=== PATIENT | male | born 1945 | race Caucasian/White ===

== ENCOUNTER 2016-11-15 09:14 | Inpatient (IN) | payer MEDICARE ==
[2016-11-15] VITALS (10 sets, daily range): BP systolic 73–132; BP diastolic 41–57; PULSE 53–71; RESP 12–22; O2SAT 98–100
[~2016-11-15] VITALS: Ht 185.4 cm; Wt 128.2 kg
[2016-11-15] MEDS: Lactated Ringer's 1,000 ML IV SCH ×7 (05:00→21:12)
[~2016-11-15 09:14] MED LIST: ALBU8.5H2 INHALATION; AMLO10TA3 PO; FUR20 PO; Gentamicin Inj 120 MG in Dextrose 5% 100 ML IV ONE; INS7030 SUBQ; LIP40 PO; LISI-571 PO; METO50TA7 PO; POTA10TA12 PO; TAMS0.4C98 PO
[2016-11-15] MEDS ORDERED: Lactated Ringer's 500 ML IV PRN (10:19)
[2016-11-15] MEDS ORDERED: hydrALAZINE 20 mg/mL Inj IVPUSH PRN (10:20)
[2016-11-15] MEDS ORDERED: EPHEDrine Sulfate 50 mg/mL Inj IVPUSH PRN (10:20)
[2016-11-15] MEDS ORDERED: Labetalol 5 mg/mL 4 mL Inj IV PRN (10:20)
[2016-11-15] MEDS ORDERED: HYDROmorphone 1 mg/mL Inj IVPUSH PRN (10:20)
[2016-11-15] MEDS ORDERED: fentaNYL-PF 50 mCg/mL 2 mL Inj IVPUSH PRN ×2 (10:20→14:55)
[2016-11-15] MEDS ORDERED: Ondansetron 2 mg/mL 2 mL Inj IVPUSH PRN ×3 (10:20→14:55)
[2016-11-15] MEDS ORDERED: Phenylephrine 10,000 mCg/mL Inj IVPUSH PRN (10:20)
[2016-11-15] MEDS ORDERED: MetoCLOpramide 5 mg/mL 2 mL Inj IVPUSH PRN ×3 (10:20→14:15)
[2016-11-15] MEDS ORDERED: Dexamethasone 4 mg/mL Inj IVPUSH PRN (10:20)
--- NOTE | 2016-11-15 10:56 | PCM.HPANE ---
Patient Data Date of Service: Nov 15, 2016 Surgeon Admitting Provider: Attending Provider:Chata Coffey MD Primary Care Physician:Urvashi Monge DO Other Provider:Primitivo Adkins Anesthesia Reason for Visit Urinary Retention Ht/WT & BMI Height (Feet): 6 Height (Inches): 1.00 Weight (Kilograms): 125.0 Body Mass Index 36.00 Allergies Coded Allergies: hydrocodone (Verified Allergy, Unknown, 11/14/16) Past Anesthesia History Anesthesia History: Denies:: Abnormal Airway, Anesthesia Reactions, Difficult Intubation, Fam Anesthesia Reaction, Fam Malignant Hypertherm, Malignant Hyperthermia Diabetes History Hx Diabetes?: Yes Type of Diabetes: Type II Glycemic Control: Insulin Dependent Current Bedside Blood Glucose: 131 MRSA MRSA: No Medications Hypertension Medication: Yes Home Meds Incl Beta Armand: Yes (Metoprolol 50mg) Date Beta Armand Taken: Nov 15, 2016 Time Beta Armand Taken: 0700 Reported Medications Metoprolol Succinate ER (Toprol XL)50 Mg [id number] Mg PO BID Ref 0 11/14/16 Amlodipine 10 Mg [id number] Mg PO DAILY Ref 0 11/14/16 Tamsulosin (Flomax)0.4 Mg Capsule0.4 Mg PO DAILY Ref 0 11/14/16 Potassium Chloride ER 10 Meq [id number] Meq PO DAILY Ref 0 TAKE WITH FOOD 11/14/16 Lisinopril 5 Mg Tablet5 Mg PO DAILY #30 TABLET Ref 0 11/14/16 Insulin Human Isophan/Regular (HUMulin 70/30 U100 Insulin Vial)100 Unit/Ml Ml1 Unit SUBQ BID PRN blood glucose #1 VIAL Ref 0 11/14/16 Furosemide 20 Mg Tab20 Mg PO DAILY 30 Days Ref 0 11/14/16 Atorvastatin (Lipitor)40 Mg [id number] Mg PO DAILY Ref 0 11/14/16 Albuterol HFA (Proair HFA)8.5 Gm Hfa.aer.ad2 Puffs INHALATION Q4H PRN For Shortness of Breath #1 INHALER 11/14/16 History HEENT History: Denies:: Abnormal Airway Cataracts Difficult Intubation Dysphagia Glaucoma Hearing Problem Sinus Problem TMJ Teeth Condition: Missing Teeth Hx of Heart Problems?: Yes Cardiovascular History: Positive for:: Atrial Fibrillation (PAF) Edema (lower extremity) Heart Murmur Hypertension Valvular Heart Disease (echo 2016) Denies:: AICD Pacemaker Peripheral Vascular Hx of Respiratory Problem?: Yes Respiratory History: Positive for:: Dyspnea (can walk a couple city blocks without losing breath) Use of Inhalers / NEBS Denies:: Asthma COPD Emphysema Oxygen Administration Pneumonia Pulmonary Embolism Tuberculosis Use of C-PAP Machine Hx Neurologic Problems?: No Neurological History: Denies:: Alzheimer's Disease CVA Dementia Dizziness Headaches Multiple Sclerosis Parkinson's Disease Seizures TIA Gastrointestinal History: Denies:: Cirrhosis Diverticulitis Gall Bladder Disease Gastroesphageal Reflux Gastrointestinal Bleeding Heartburn Hepatitis Hiatal Hernia Liver Disease Rectal Bleeding Hx of Problems?: Yes Genitourinary History: Denies:: Kidney Stones Urinary Tract Infection Other Pertinent History: hematuria- current ortega catheter Male Hx: Positive for:: Prostate Problems (current admission problem) Skin History: Denies:: History Skin Disorders? Pressure Ulcers Hx Musculoskeletal Problems?: Yes Musculoskeletal History: Positive for:: Osteoarthritis Denies:: Back Injury Degenerative Joint Fibromyalgia Joint Replacement Myasthenia Gravis Systemic Lupus Hx of Psycho/Social Problems?: No Psycho Social History: Denies:: Anxiety Hx Depression Hx Surgeries?: Yes (cysto, knee scope, hernia x 2) Hx Any Other Health Problems?: Yes Other History: Denies:: Cancer Thyroid Disease History Blood Transfusions: Positive for:: Accept Blood Products? Blood Transfusions (october 2016) Denies:: Blood Transfuse Reaction Hx Diabetes: YesBedside Blood Glucose: 131 Hx Alcohol Use: NoHx Substance Use: NoHave You Smoked inLast 12 mo: No Stop/Bang S-Snoring: Do You Snore Loudly: No T-Tired: feel tired, fatigued: Yes O-Obsered: Observed not breath: Yes P-Blood Pressure: treated: Yes B- Body Mass Index > 35 kg/m2: Yes A- Age over 50: Yes N- Neck Large Circumference: No G- Gender Male: Yes JOSE ELIAS Total Score: 6 JOSE ELIAS Risk Assessment: High Risk, =/>3 Yes Risk Assessment Category Category 1A: Patient has history of documented sleep apnea, and HAS NOT received any narcotic, sedative or anesthesia administration during this stay. Category 1B: Patient has history of documented sleep apnea, and HAS received any narcotic , sedative or anesthesia administration during this stay Category 2: Patient has SUSPECTED Obstructive Sleep Apnea, and HAS received any narcotic , sedative or anesthesia administration during this stay. Category 3: Patient has SUSPECTED Obstructive Sleep Apnea and HAS NOT received narcotic, sedative or anesthesia administration during this stay. Category 4: Outpatient in Procedural Areas with known sleep apnea or who screen positive for High Risk via the STOP/BANG questionnaire. Exam Exam Vital Signs Vital Signs Date Time Temp Pulse Resp B/P Pulse Ox O2 Delivery O2 Flow Rate FiO2 11/15/16 10:10 36.1 64 16 132/52 98 Room Air Meds/Labs/Diagnostics Admission Meds Current Medications Lactated Ringer's (Lr) 1,000 ml @ 120 mls/hr Q8H20M IV Last administered on t 06:17; Start 11/15/16 at 05:00; Stop 11/15/16 at 13:19 Bedside Blood Glucose: 131 Diagnositcs Lexiscan, echo, cardiology notes all reviewed. Patient likely needing interventional cardiac cath but due to ongoing hematuria requiring transfusion needs this procedure first. Additional Information Cardiology note from 11/08/2016 reviewed. EF 40%, lexiscan positive. Unable to pursue interventional treatments due to hematuria. Mod risk surgical candidate , but bladder needs to be addressed prior to invasive cardiac procedures. Patient understands this risk. Wishes to proceed with GA over spinal. Plan Impression Patient chart reviewed, patient interviewed and anesthestic plan with risks, benefits, and alternatives discussed, and informed consent obtained. NPO Status: 11/14 at 2200 ASA Physical Status: ASA3 Severe Disease Anesthetic Plan: GA Bene/Risks/Altern/Consents: Yes HP Complete Prior to Induction: Yes Juan Jose Josue MD Nov 15, 2016 10:19
[2016-11-15 12:04] LABS: Mean Corpuscular Hemoglobin 30.4 pg (27.0-35.0); Mean Corpuscular Volume 92.9 fL (81-100)
[2016-11-15] MEDS ORDERED: 0.9% Sodium Chloride 1,000 ML IV ONE (12:55)
[2016-11-15 14:00] LABS: Mean Corpuscular Volume 92.2 fL (81-100)
[2016-11-15] MEDS ORDERED: HYDROcodone-APAP 5-325 mg Tablet PO PRN (14:15)
[2016-11-15] MEDS ORDERED: Belladonna Alk-Opium 60 mg Rectal Suppository RECTAL PRN (14:15)
[2016-11-15] MEDS ORDERED: Lactated Ringer's 1,000 ML IV SCH (14:15)
[2016-11-15] MEDS ORDERED: Polyethylene Glycol (PEG) 17 Gm Powder PO PRN ×2 (14:15→14:55)
[2016-11-15] MEDS ORDERED: Dexmedetomidine 400 mCg/100 mL 400 MCG in IV Premix 1 EACH IV SCH (14:51)
[2016-11-15] MEDS ORDERED: Propofol Inj 1,000,000 MCG in IV Premix 1 EACH IV SCH (14:51)
[2016-11-15] MEDS ORDERED: fentaNYL 2,500 mCg/250 mL 2,500 MCG in IV Premix 1 EACH IV PRN (14:51)
[2016-11-15] MEDS ORDERED: Alum-Mag Hydrox-Simeth 30 mL Suspension PO PRN (14:55)
[2016-11-15] MEDS ORDERED: Norepinephrine 8,000 mCg/250 mL D5W Premix IV SCH (14:55)
[2016-11-15] MEDS ORDERED: Senna-Docusate 8.6-50 mg Tablet PO PRN (14:55)
[2016-11-15] MEDS: Norepineph 8,000 mCg/250 mL NS 8,000 MCG in IV Premix 1 EACH IV SCH (15:05)
--- NOTE | 2016-11-15 15:10 | OP ---
[address] [address] OPERATIVE REPORT PATIENT: PAWAN DUMONT : 1945 MR#: [id number] ADMIT: 11/15/2016 JOB ID: [id number] DATE OF SURGERY: 11/15/2016 SURGEON: Chata Coffey MD PREOPERATIVE DIAGNOSIS(ES): 1. Benign prostatic hypertrophy. 2. Urinary retention. POSTOPERATIVE DIAGNOSIS(ES): PROCEDURE: Transurethral resection of prostate. ANESTHESIA: General anesthetic, Dr. Josue. DESCRIPTION OF PROCEDURE: Under general anesthetic, patient placed in lithotomy position. The genitalia prepped and draped in a sterile manner. A 26-Trinidadian Red type resectoscope was introduced in the bladder. There was significant contact bleeding from the prostatic urethra. The prostate was resected circumferentially until resection was down to capsule. There was bleeding throughout the procedure, primarily venous. The patient was typed and crossed for 2 units, which were given intraoperatively, with a stable hemoglobin. The patient tolerated the procedure well, with a couple of minor episodes of hypertension. Following completion of resection and removal of chips, a 26-Trinidadian three-way Soares catheter was inserted in the bladder and attached to continuous irrigation. ESTIMATED BLOOD LOSS: 1000 cc. DISPOSITION: The patient left the operating room with clear sorbitol irrigations.
[2016-11-15 15:23] LABS: BASOPHILS % (AUTO) 0.3 % (0-3); EOSINOPHILS % (AUTO) 1.2 % (0-5); MONOCYTES % (AUTO) 8.2 % (4-12); Mean Corpuscular Hemoglobin 30.4 pg (27.0-35.0); Mean Corpuscular Volume 91.6 fL (81-100); NEUTROPHILS % (AUTO) 73.9 % (40-74); Platelet Count 150 bil/L (150-400)
[2016-11-15 15:42] LABS: INR 1.26 ratio
[2016-11-15 15:53] LABS: TROPONIN T < 0.010 ug/L (0.0-0.011)
[2016-11-15 16:00] LABS: Magnesium 1.4 mg/dL (1.6-2.6)
--- NOTE | 2016-11-15 16:08 | PCM.ANEP1 ---
Post Anesthesia Phase 1 PACU Phase 1 Assessment Date of Service: Nov 15, 2016 Vital Signs Vital Signs Date Time Temp Pulse Resp B/P Pulse Ox O2 Delivery O2 Flow Rate FiO2 11/15/16 15:45 66 13 122/53 100 Simple Mask 10 11/15/16 15:30 67 17 128/48 100 Simple Mask 10 11/15/16 15:25 65 16 124/57 100 Simple Mask 10 11/15/16 15:20 66 15 73/44 100 Simple Mask 10 11/15/16 15:15 36.5 71 14 114/56 100 Simple Mask 10 11/15/16 10:10 36.1 64 16 132/52 98 Room Air Anesthetic Administered: GA Level of Alertness: Awake, talking WATERS's with Equal Strength: Yes Pain: Yes (back and bladder) Nausea or Vomiting: No Oxygen Delivery: Simple Mask Summary Patient with greater than average blood loss and a prolonged procedure. During the last 1 hour of the case while giving 2 units of PRBC patient became very labile with blood pressures. Discrepant blood pressures between cuff and arterial line were obtained. Patient awakened, LMA removed awake. Patient neurologically intact and appropriate. EKG obtained, possible a.fib. During case patient frequently had NRS with PVC. Arterial line replaced with continued low numbers, phenylephrine boluses given and transported to PACU awaiting ICU admission. Central line placed in PACU, very prominent IJ suggesting adequate fluid hydration (possible overload). CVP approximatley 5. Norepinephrine infusion started, hospitalist consulting. Given cardiac history, concern for perioperative cardiac event vs. hypovolemia vs. fluid overload secondary to TURP fluid. Juan Jose Josue MD Nov 15, 2016 16:08
--- NOTE | 2016-11-15 16:17 | DRSVH ---
PROCEDURE: X-RAY CHEST ONE VIEW, PORTABLE ([id number]) INDICATIONS: POST CENTRAL LINE TECHNIQUE: One view of the chest was acquired. COMPARISON: [facility], , CHEST 1 VIEW, 10/20/2016, 17:43. FINDINGS: Surgical changes and devices: Central line from right internal jugular approach extends to overlie th e expected region of the superior vena cava.. Lungs and pleura: No pleural effusions or pneumothorax. Lungs are abnormal with linear atelectasis or scarring at each lung base, left greater than right.. Mediastinum: Mediastinal contours appear normal. Heart size is normal. Bones and chest wall: No suspicious bony lesions. Overlying soft tissues appear unremarkable. IMPRESSION: No pneumothorax after central line placement. The exact positioning of the central line tip is uncertain as is always the case, but it overlies the general area of the superior vena cava. Dictated by: Toby Pemberton M.D. on 11/15/2016 at 16:14 Approved by: Toby Pemberton M.D. on 11/15/2016 at 16:15
--- NOTE | 2016-11-15 16:28 | PCM.ANEP2 ---
Post Anesthesia Evaluation ASA/CMS Post Anesthesia Date of Service: Nov 15, 2016 VS in Patient's Normal Range?: No Resp Stable; Airway Patent?: Yes CV Function & Hydration Stable: No Mental Status Recovered?: Yes Pain control Satisfactory?: Yes N/V Control Satisfactory?: Yes Additional Comments To ICU on norepinephrine. 3 units PRBC given, Hct 24% prior to 3rd unit. Patient awake. Spoke with family. Juan Jose Josue MD Nov 15, 2016 16:28
[2016-11-15] MEDS ORDERED: Chlorhexidine 0.12% 15 mL Oral Solution MT SCH (16:30)
[2016-11-15] MEDS ORDERED: EPHEDrine/NS 5 mg/mL 5 mL Syringe ONE (16:59)
[2016-11-15] MEDS ORDERED: fentaNYL-PF 50 mCg/mL 2 mL Inj ONE (16:59)
[2016-11-15] MEDS ORDERED: Phenylephrine 10,000 mCg/mL Inj ONE (16:59)
[2016-11-15] MEDS ORDERED: Propofol 10,000 mCg/mL 20 mL Inj ONE (16:59)
[2016-11-15] MEDS ORDERED: Lidocaine PF 1% 30 mL Inj ONE (16:59)
[2016-11-15] MEDS ORDERED: Phenylephrine/NS-PF 100 mCg/mL 5 mL Syringe IVPUSH ONE (16:59)
--- NOTE | 2016-11-15 18:06 | PCM.HPMED ---
Subjective Date of Service Nov 15, 2016 Primary Provider: Admitting Physician: Primary Care Physician: Urvashi Monge DO Attending Physician: Chata Coffey MD Admit Status: Direct Admit, Admit to Yellow Team Chief Complaint: 71-year-old man with BPH, type II diabetes mellitus, CHF, hypertension, atrial fibrillation presents with acute blood loss hemodynamic shock following TURP surgery today History of Present Illness: Patient states that he was in usual state of health presenting for elective TURP surgery today. He has no history of bleeding diathesis. During surgery today, He experienced significant blood loss, estimated at approximately 1000 mL. Anesthesiologist reported labile blood pressures with significant hypotension systolic blood pressure in the 40s by art line, although variable readings up to 120 obtained from arm cuffs. He is transferred to direct admission to the CCU for the management of hemodynamic shock. When interviewed approximately 4 hours after surgery, the patient's only complaint is bladder discomfort. Currently has three-way Soares and bladder irrigation. He denies chest pain, dyspnea, nausea vomiting, abdominal pain, headache, or problems with his extremities. Review of Systems: Patient is unable to comply with review of systems at this time. Allergies Coded Allergies: hydrocodone (Verified Allergy, Unknown, 11/14/16) Home Medications Per med reconciliation performed on 11/14: Amlodipine 10 mg daily Atorvastatin 40 mg daily Furosemide 20 mg daily Insulin 70/30, 45 units every morning, 30 units every dinner Lisinopril 5 mg daily Metoprolol succinate 50 mg twice a day Potassium chloride 20 mEq per day Tamsulosin 0.4 mg. PMH # CHF - admitted to [facility] on 10/20/16 due to shortness of breath. Ischemic cardiomyopathy. Echocardiogram with LVEF 40-45%, mild LV dilation, mild global hypokinesis. No evidence of pulmonary hypertension. Moderate MR and TR. # Coronary artery disease. Nuclear cardiac perfusion on 10/31/16. LVEF 55% by nuclear method. Fixed perfusion deficit on basal inferior wall and apex, with moderate reversible defect on distal inferior wall. # Chronic atrial fibrillation - no anticoagulation due to hematuria # Postobstructive nephropathy - peak creatinine 4.5 in 10/20/16 at [facility] # BPH - nocturia every 2 hours # Blood loss anemia - hemoglobin range 8-9 during hematuria requiring bladder clot evaluation with cystoscopy by Dr. Coffey. # Hypertension # Type II diabetes mellitus recent A1c and complications unknown # Degenerative joint disease - moderate to severe symptoms knees bilaterally . Family History Father in 90s generally few medical problems. Mother from lung disease. No brothers and sisters. No significant family trends. Specifically no bleeding diatheses or thrombophilia. Social History Hx Alcohol Use: No Hx Substance Use: No Living Arrangement: with Family (lives with in his own home. Ordinarily active including moving with stacks. 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 Patient family expressed a preference for full code but with termination of efforts in the setting of severe neurologic injury or persistent organ system failure. Exam Vital Signs Vital Sign - Last Date Time Temp Pulse Resp B/P Pulse Ox O2 Delivery O2 Flow Rate FiO2 11/15/16 10:10 36.1 64 16 132/52 98 Room Air Exam Constitutional: appears pale; in no distress; vital signs noted Eyes: sclerae anicteric, mild conjunctival pallor ENMT: ears, nose atraumatic; oral mucosa dry Neck: supple, JVD not detected Chest: symmetric, no pain or lesions, CVC in place Resp: auscultation clear, no wheezes, rales or dullness Cardiac: S1, S2, irregular beats, no audible murmur Abdomen: bowel sounds present, nontender, no organomegaly : Soares in place Musculoskeletal: no joints with acute erythema, swelling Skin and soft tissues: no rash; no pitting edema Peripheral pulses: normal at wrist, feet; arterial line in place Lymphatic: no adenopathy cervical Neurological: Cranial Nerves - face symmetric Reflexes - symmetrically reduced Motor - 5/5 strength, normal tone Sensory- intact light touch in feet Coordination - normal movement, no tremor Psych & Mental Status - oriented, seems to understand current condition Lab and Diagnostics Result Diagram: 11/15/16 1356 X-Rays, CTs and MRIs PROCEDURE: X-RAY CHEST ONE VIEW, PORTABLE ([id number]) INDICATIONS: POST CENTRAL LINE IMPRESSION: No pneumothorax after central line placement. The exact positioning of the central line tip is uncertain as is always the case, but it overlies the general area of the superior vena cava. Dictated by: Toby Pemberton M.D. on 11/15/2016 at 16:14 . 12-lead ECG 11/15 at 14-31 hour Sinus mechanism with probable multifocal atrial pacing. Approximately [address]-T wave changes. Assessment & Plan 71-year-old man presents with acute blood loss anemia and hemodynamic shock following prostate surgery # Hematological - Hemodynamic shock secondary to acute blood loss anemia. Received 4 units PRBC perioperatively. - Check coagulation parameters, supplement FFP or cryo if greater than 4 units PRBC needed and elevated PTT - Daily CBC and coags # Cardiac: Hemodynamics & Rhythm - recent cardiac evaluation most consistent with chronic diastolic CHF. No evidence of acute exacerbation at this time. Patient is at moderately high risk of ischemic events. - Telemetry monitoring - CVP monitoring maintain 8-12 cm H2O with aggressive IV hydration (lactated Ringer's) - norepinephrine as needed - Maintain MAP greater than 65 mmHg; monitor Soares output - Trend troponin 3 # Lines, I/O's, fluids and electrolytes - - Lactated Ringer's at 250 mL per mL; boluses as needed to maintain MAP greater than 65 mmHg - Reduce lactated Ringer's to 100 mL per hour when CVP 12 cm H20 - CVC care - Arterial line care # Renal - high risk of ATN due to today's hypotensive episode - Daily BMP - Goal urine output greater than 0.5 mL/KG/MR - Careful daily I's and O's, while receiving bladder irrigation. - Monitor central venous pressure, reduce IV fluids if in oliguric renal failure # GI, diabetes, and nutritional status - type II diabetes mellitus usually insulin using. - Nothing by mouth since 11/15 AM; 14 units of insulin 70/30 in a.m. on 11/15 - resume diabetic diet when hemodynamically stable - Subcutaneous regular insulin correctional regimen at present - Resume basal and bolus insulin when hemodynamically stable. # Pain status - opioid sedatives parenteral as needed - Bladder spasm medications per Dr. Coffey # GI prophylaxis: Pantoprazole IV Chronic, stable, or resolving problems # Respiratory function - -O2 supplement as needed - Wean as tolerated # Neurological - no evidence of compromise at this time - Monitor status clinically # Infectious disease status - no signs of infection at this time # Venous thromboembolism prophylaxis: None at this time due to acute bleeding # Goals of care, expected hospital duration 2-5 days, discharge planning: Pending - Admitted to inpatient status with expectation of care greater than 48 hours - Patient is full code Pain Evaluation: Pain not Controlled VTE Prophylaxis: SCDs Resuscitation Status: CPR: Attempt Resuscitation Time spent 75 minutes critical care time Juan Jose Poe MD Nov 15, 2016 15:16
[2016-11-15] MEDS ORDERED: Sodium Chloride LOK Flush 10 mL Syringe IVFLUSH PRN ×2 (18:10)
[2016-11-15] MEDS: Insulin Human REGular 300 Unit/3 mL Inj SUBQ SCH (21:13)
[2016-11-15] MEDS ORDERED: Albuterol 2.5 mg/3 mL Inhalation Solution NEB PRN (21:30)
[2016-11-15] MEDS ORDERED: Insulin Human NPH-Reg 70-30 100 Unit/mL 3 mL Pen SUBQ PRN (21:35)
[2016-11-16] VITALS (9 sets, daily range): BP systolic 99–158; BP diastolic 42–62; PULSE 60–85; RESP 17–27; O2SAT 96–98
[2016-11-16] MEDS: Lactated Ringer's 1,000 ML IV SCH ×7 (01:26→16:39)
[2016-11-16] MEDS: Norepineph 8,000 mCg/250 mL NS 8,000 MCG in IV Premix 1 EACH IV SCH (01:26)
[2016-11-16] MEDS: Insulin Human REGular 300 Unit/3 mL Inj SUBQ SCH (02:21)
[2016-11-16 04:39] LABS: Mean Corpuscular Hemoglobin 30.4 pg (27.0-35.0); Mean Corpuscular Volume 88.9 fL (81-100)
[2016-11-16 05:08] LABS: TROPONIN T 0.01 ug/L (0.0-0.011)
--- NOTE | 2016-11-16 07:25 | NUR ---
Irrigation Continuous irrigation throughout night to keep urine pinkish. Had several large clots through ortega but did not need to manually irrigate. Pt had no pain/cramping throughout night in area. Some leaking around ortega once while pt was trying to have BM on bedpan. Pt tolerated night well. BP stable. Care ongoing
[2016-11-16] MEDS: MeTOProlol XL 50 mg ER24 Tablet PO SCH ×2 (08:00→19:33)
[2016-11-16] MEDS ORDERED: Glucose 40% Oral Gel 15 Gm Tube PO PRN (08:05)
--- NOTE | 2016-11-16 08:06 | PCM.ANEP2 ---
Post Anesthesia Evaluation ASA/CMS Post Anesthesia Date of Service: Nov 16, 2016 VS in Patient's Normal Range?: No Resp Stable; Airway Patent?: Yes CV Function & Hydration Stable: No Mental Status Recovered?: Yes Pain control Satisfactory?: Yes N/V Control Satisfactory?: Yes Additional Comments Patient POD #1 s/p TURP. Continues to be hypotensive requiring pressor support , transfused 3 units PRBC yulissa/post-operative yesterday. Juan Jose Josue MD Nov 16, 2016 08:06
[2016-11-16 08:28] LABS: Magnesium 1.8 mg/dL (1.6-2.6)
[2016-11-16] MEDS ORDERED: Furosemide 10 mg/mL 4 mL Inj IVPUSH SCH (08:30)
[2016-11-16] MEDS ORDERED: Pantoprazole 4 mg/mL 10 mL Inj IVPUSH SCH (08:30)
[2016-11-16] MEDS: Potassium Chloride 20 mEq SR Tablet PO SCH (09:06)
[2016-11-16] MEDS: levoFLOXacin 500 mg Tablet PO SCH (09:06)
[2016-11-16] MEDS: Insulin GLARgine 100 Unit/mL Syringe SUBQ SCH (09:07)
[2016-11-16] MEDS: Insulin LISPRO 300 Unit/3 mL Inj SUBQ SCH ×5 (09:08→21:15)
--- NOTE | 2016-11-16 11:52 | NUR ---
Social Work: Initial Assessment D: Per EMR review, pt is a 71 year old male admitted for urinary retention. Pt is [facility] Medicare with no LTC insurance or VA Benefits. PCP is Urvashi Monge DO. NOK Is Pebbles Patel, , . Advanced directives not completed-information provided by [facility]. Readmit score is moderate, 4/8. [facility] met with pt and family at bedside. Sw role and contact information provided. See initial assessment. Pt lives in [place] with his spouse. He is I with ADLs at baseline. Pt states he recently spend 10 days at [facility] and was discharged home with no needs. Pt lives in a home with ramp access and no internal stairs. Pt uses a cane at base and continues to drive. Pt has never had HH or skilled rehab. Pt states his will transport once medically stable. A: pt who was previously I. P: Evolving; [facility] to continue to follow pt's clinica progress and to r/o discharge needs including HH or SNF. KAYLEIGH Vazquez Addendum: 11/16/16 at 1156 by SHANNAN RAPHAEL Amended: Links added.
[2016-11-16] MEDS ORDERED: 0.9% Sodium Chloride 250 ML IV PRN (15:35)
--- NOTE | 2016-11-16 16:51 | NUR ---
P: Hypotension I: Tried to wean norepinephrine down, but BP drops. Dr. Poe notified and 500cc LR bolus given and rate increased to 125cc/hr. H&H low and one unit PRBC's infusing as ordered. Norepinephrine gtt 0.04 mcqs/kg/min with BP more stable. Urine pale pink with CBI infusing very slowly. Taking diet and fluids well. Blood sugars high and Lantus started. RIJ TLC patent without difficulty. Turns self with some pillow placement assistance needed. Denies needing pain medication. c/o some low back pain and repositioning helps. Pt napping and now sats are down with sleep so O2 4L/NC. NSR. Family at bedside and updated on plan of care and pt's condition. E: Improving S: Pt alert and oriented. Uses call light appropriately. Frequent rounding.
--- NOTE | 2016-11-16 19:24 | PCM.PNMED ---
Subjective Date of Service Nov 16, 2016 Subjective 71-year-old man with history of chronic systolic CHF, hypertension, type II diabetes mellitus, coronary artery disease and atrial fibrillation presents with acute blood loss anemia in hemorrhagic shock following elective TURP on Patient feels much improved today. Bladder spasms and perineal pain are improved. Appetite is good. Experience slight presyncopal sensation later in the afternoon. Continues require pressors to maintain good blood pressure. Exam Vital Signs Vital Sign - Last Date Time Temp Pulse Resp B/P Pulse Ox O2 Delivery O2 Flow Rate FiO2 11/16/16 16:30 37.0 83 24 117/54 96 Nasal Cannula 4.00 Intake and Output 11/15/16 11/15/16 11/16/16 Cumulative From/Thru 15:00 23:00 07:00 11/14/16 10:30 - 11/16/16 06:42 Intake Total 3105 ml 250 ml 3512 ml 6867 ml Output Total 1000 ml 100 ml 800 ml 1900 ml Balance 2105 ml 150 ml 2712 ml 4967 ml IV Total 2105 ml 250 ml 3512 ml 5867 ml Autotransfusion 1000 ml 1000 ml Output Urine Total 100 ml 800 ml 900 ml Estimated Blood Loss 1000 ml 1000 ml # Bowel Movements 1 1 Exam General: Elderly man slightly pale but no acute distress HEENT: sclerae anicteric, oral mucosa moist Neck: no JVD Chest: clear to auscultation Cardiac: S1S2, irregular, no murmur Abdomen: BS normal, non-tender Extremities: 1+ edema of hands no pedal edema Neuro: A&O, cranial nerves symmetric, motor strength 5/5, coordination normal IVs and Medications Medications Reviewed: Medications were reviewed in detail Lab and Diagnostics Result Diagram: 11/16/16 1400 11/16/16 0425 X-Rays, CTs and MRIs PROCEDURE: X-RAY CHEST ONE VIEW, PORTABLE ([id number]) INDICATIONS: POST CENTRAL LINE IMPRESSION: No pneumothorax after central line placement. The exact positioning of the central line tip is uncertain as is always the case, but it overlies the general area of the superior vena cava. Dictated by: Toby Pemberton M.D. on 11/15/2016 at 16:14 . 12-lead ECG 11/15 at 14-31 hour Sinus mechanism with probable multifocal atrial pacing. Approximately [address]-T wave changes. Assessment & Plan 71-year-old man presents with acute blood loss anemia and hemodynamic shock following prostate surgery # Hematological - Hemodynamic shock secondary to acute blood loss anemia. Received 4 units PRBC perioperatively. Baseline hemoglobin was 9.5, has declined to 7.4 as of 11/16. Bladder flush has few clots but minimal bleeding. Suspect hemodilution. - Transfuse 1 unit PRBC - Daily CBC, warfarin only if hemoglobin less than 8.0 # Cardiac: Hemodynamics & Rhythm - recent cardiac evaluation most consistent with chronic diastolic CHF. No evidence of acute exacerbation at this time. Patient is at moderately high risk of ischemic events. Hypertension is persistent even after volume resuscitation. No troponin elevation. Continues to require norepinephrine at 24 hours post hemorrhagic event. - Telemetry monitoring - CVP target 8-12 cm H2O with IV hydration (lactated Ringer's) - norepinephrine as needed - Maintain MAP greater than 65 mmHg; maintain CVP; monitor Soares output # Lines, I/O's, fluids and electrolytes - Lactated Ringer's at 250 mL per mL initially, reduced to maintenance.; - Fluid boluses as needed to maintain MAP greater than 65 mmHg - Reduce lactated Ringer's to 100 mL per hour when CVP 12 cm H20 - CVC care - Arterial line care; hope to discontinue on 11/17 # Renal - high risk of ATN due to today's hypotensive episode. Serum creatinine 1.29, up to 1.5 at 24 hours after surgery. - Daily BMP - Lasix today, even in setting of fluid resuscitation to maintain urinary flow - Goal urine output greater than 0.5 mL/KG/MR - Careful daily I's and O's, while receiving bladder irrigation. - Monitor central venous pressure, reduce IV fluids if in oliguric renal failure # GI, diabetes, and nutritional status - type II diabetes mellitus usually insulin using. - 4 times a day capillary blood glucose - Glucose control goals: Random less than 180, fasting less than 140, none less than 70 - Insulin as needed, divided 50-50 long-acting and nutritional/correctional # Pain status - Bladder spasm medications per Dr. Coffey # GI prophylaxis: Pantoprazole IV Chronic, stable, or resolving problems # Respiratory function - -O2 supplement as needed - Wean as tolerated # Neurological - no evidence of compromise at this time - Monitor status clinically # Infectious disease status - no signs of infection at this time # Venous thromboembolism prophylaxis: No chemoprophylaxis at this time due to acute bleeding # Goals of care, expected hospital duration 2-3 days, discharge planning: Pending - Admitted to inpatient status with expectation of care greater than 48 hours - Patient is full code Pain Evaluation: Adequate Pain Control GI Prophylaxis: Not indicated VTE Prophylaxis: SCDs VTE Mechanical Devices: Intermittant Pneumatic CD Resuscitation Status: CPR: Attempt Resuscitation Time spent 40 minutes Juna Jose Poe MD Nov 16, 2016 19:24
[2016-11-17] VITALS (11 sets, daily range): BP systolic 110–142; BP diastolic 46–57; PULSE 70–81; RESP 14–23; O2SAT 93–99
[2016-11-17] MEDS: Lactated Ringer's 1,000 ML IV SCH ×3 (00:45→17:07)
--- NOTE | 2016-11-17 03:24 | NUR ---
P) Cardiac/Sleep apnea/fever Pt. with low grade fever tonight, T-max 37.5c axillary so far this shift, has severe sleep apnea, SPO2 has dropped as low as 65% momentarily then comes right back up to the low 90's, pt. states he has never been tested for sleep apnea. Cardiac rhythm sinus with a first degree AVB and MF PVC's, weaned of norepinephrine at 2200,so far MAP's >60. I) Cont. to monitor closely, changed to oxymask as he is also mouth breathing when he is asleep. E) Currently resting quietly but also talks and moans in his sleep, denies pain when he is awake.
[2016-11-17 04:13] LABS: Mean Corpuscular Hemoglobin 29.9 pg (27.0-35.0); Mean Corpuscular Volume 91.3 fL (81-100)
--- NOTE | 2016-11-17 04:28 | NUR ---
P) Urine Pt.'s urine light pink to matthias with occasional small clots, copious output. Irrigation on standby but ready if needed. I) Cont. to monitor. E) Resting quietly with eyes closed.
[2016-11-17] MEDS: Pantoprazole 40 mg ER24 Tablet PO SCH (06:24)
--- NOTE | 2016-11-17 07:53 | PROG NOTE ---
[address] [address] PROGRESS NOTE PATIENT: PAWAN DUMONT : 1945 MR#: [id number] ADMIT: 11/15/2016 JOB ID: [id number] DATE: SUBJECTIVE: Postoperative day two, complicated TURP. Continuous bladder irrigations have been turned off. Urine is clear. Creatinine has dropped slightly from 1.5 to 1.39. Remainder of his chemistry is within normal limits. Hematocrit is stable at 22. Blood pressure is 116/46, off pressors. When stable, transfer to first floor. PLAN: Discharge home with Soares catheter. To see in follow up next week for trial of voiding.
[2016-11-17] MEDS: MeTOProlol XL 50 mg ER24 Tablet PO SCH ×2 (08:17→19:37)
[2016-11-17] MEDS ORDERED: 0.9% Sodium Chloride 250 ML IV PRN (08:20)
[2016-11-17] MEDS: levoFLOXacin 500 mg Tablet PO SCH (08:22)
[2016-11-17] MEDS: Potassium Chloride 20 mEq SR Tablet PO SCH (08:22)
[2016-11-17] MEDS: Insulin GLARgine 100 Unit/mL Syringe SUBQ SCH (08:27)
[2016-11-17] MEDS: Insulin LISPRO 300 Unit/3 mL Inj SUBQ SCH ×4 (08:28→21:06)
[2016-11-17] MEDS: Norepineph 8,000 mCg/250 mL NS 8,000 MCG in IV Premix 1 EACH IV SCH (08:36)
--- NOTE | 2016-11-17 12:32 | NUR ---
took over patient care 1230pm
--- NOTE | 2016-11-17 14:30 | PATH ---
SURGICAL PATHOLOGY Attending Physician:Chata Coffey MD () CASE STATUS: Signed Out PATIENT NAME: PAWAN DUMONT PID: [id number] : 1945 DATE COLLECTED:11/15/2016 22:31 SPECIMEN: Prostate, Chips CLINICAL HISTORY: URINARY RETENTION 1). RESECTED PROSTATE FINAL DIAGNOSIS: 1.PROSTATE TISSUE (TRANSURETHRAL RESECTION, 96.8 GRAMS): NODULAR HYPERPLASIA OF GLANDS AND STROMA, NEGATIVE FOR ATYPIA. ICD10 CODE N40.1 GROSS DESCRIPTION: The specimen is received in formalin, labeled with the patient's name, sublabeled as resected prostate, and consists of multiple fragments of [place]-pink rubbery prostatic tissue (96.8 g, 9.5 x 8.5 x 4.5 cm in aggregate). Section code: (A-M) prostatic tissue, loan representative. 11/16/16 JM MICRO DESCRIPTION: See diagnosis. ICD-9 CODES: CPT CODES: 1: 59079 Electronically Signed Out Fabrizio Reinoso MD [facility] [address], [place] [address] Technical component performed at [facility], [address] [place] [address] Ave[address], [place], [address]
--- NOTE | 2016-11-17 15:05 | PCM.PNMED ---
Subjective Date of Service Nov 17, 2016 Subjective 71-year-old man with history of chronic systolic CHF, hypertension, type II diabetes mellitus, coronary artery disease and atrial fibrillation presents with acute blood loss anemia in hemorrhagic shock following elective TURP on Patient feels much improved today. Bladder spasms and perineal pain are improved. Appetite is good. Exam Vital Signs Vital Sign - Last Date Time Temp Pulse Resp B/P Pulse Ox O2 Delivery O2 Flow Rate FiO2 11/17/16 13:06 70 11/17/16 12:30 37.0 23 135/46 93 Room Air 11/17/16 08:30 2.00 Intake and Output 11/16/16 11/16/16 11/17/16 Cumulative From/Thru 15:00 23:00 07:00 11/14/16 10:30 - 11/17/16 06:03 Intake Total 3657 ml 1816 ml 38877 ml Output Total 1800 ml 3500 ml 7200 ml Balance 1857 ml -1684 ml 5140 ml Intake Oral 1440 ml 300 ml 1740 ml IV Total 1817 ml 1516 ml 9200 ml Autotransfusion 1000 ml Packed Cells 400 ml 400 ml Output Urine Total 1800 ml 3500 ml 6200 ml Estimated Blood Loss 1000 ml # Bowel Movements 1 Exam General: Elderly man slightly pale but good spirits HEENT: sclerae anicteric, oral mucosa moist Neck: no JVD Chest: Right IJ CVC, lungs clear to auscultation Cardiac: S1S2, irregular, no murmur Abdomen: BS normal, non-tender Extremities: 2+ edema of hands no pedal edema Neuro: A&O, cranial nerves symmetric, motor strength 5/5, coordination normal IVs and Medications Medications Reviewed: Medications were reviewed in detail Lab and Diagnostics Result Diagram: 11/17/1640411/17/16404 X-Rays, CTs and MRIs PROCEDURE: X-RAY CHEST ONE VIEW, PORTABLE ([id number]) INDICATIONS: POST CENTRAL LINE IMPRESSION: No pneumothorax after central line placement. The exact positioning of the central line tip is uncertain as is always the case, but it overlies the general area of the superior vena cava. Dictated by: Toby Pemberton M.D. on 11/15/2016 at 16:14 . 12-lead ECG 11/15 at 14-31 hour Sinus mechanism with probable multifocal atrial pacing. Approximately [address]-T wave changes. Additional Diagnostics SURGICAL PATHOLOGY DATE COLLECTED:11/15/2016 22:31 SPECIMEN: Prostate, Chips CLINICAL HISTORY: URINARY RETENTION 1). RESECTED PROSTATE FINAL DIAGNOSIS: 1.PROSTATE TISSUE (TRANSURETHRAL RESECTION, 96.8 GRAMS): NODULAR HYPERPLASIA OF GLANDS AND STROMA, NEGATIVE FOR ATYPIA. . Assessment & Plan 71-year-old man presents with acute blood loss anemia and hemodynamic shock following prostate surgery # Hematological - Hemodynamic shock secondary to acute blood loss anemia. Received 4 units PRBC perioperatively, 1 unit PRBC on 11/16. Baseline hemoglobin was 9.5, has declined to 7.2 as of 11/17. Bladder flush has few clots but minimal bleeding. Suspect hemodilution. - Transfuse 1 unit PRBC - Daily CBC # Cardiac: Hemodynamics & Rhythm - recent cardiac evaluation most consistent with chronic diastolic CHF. No evidence of acute exacerbation at this time. Patient is at moderately high risk of ischemic events. Hypertension is persistent even after volume resuscitation. No troponin elevation. Continued to require norepinephrine at 36 hours post hemorrhagic event, but now weaned off with stable blood pressure. He received Lasix 1 time with good diuresis. Body weight is 6 kg above baseline. Heart line discontinued. - Discontinue Telemetry monitoring # Lines, I/O's, fluids and electrolytes - Lactated Ringer's at 250 mL per hr initially, reduced to 100 mm/h maintenance. - Discontinue IV fluids; encourage by mouth intake - We will consider need for additional Lasix in a.m. - CVC care # Renal - concern for potential ATN due to hypotensive episode. Serum creatinine 1.29, up to 1.5 then declined to 1.39. He now seems at low risk for ATN - Encourage by mouth hydration # GI, diabetes, and nutritional status - type II diabetes mellitus usually insulin using insulin 70/30 approximately 75 units per day. Blood glucose is slightly above goal on approximately 60 units insulin per day - 4 times a day capillary blood glucose - Glucose control goals: Random less than 180, fasting less than 140, none less than 70 - Insulin as needed, divided 50-50 long-acting and nutritional/correctional - Increase insulin dosing today # Status post TURP on 11/15/15. Flushing of 3-way Soares catheter is been discontinued. Urine remains slightly pink but no significant clots or blood loss. - Management per urology career development consultant; will leave Soares in place until Sunday # Pain status. Pain is now well controlled # Venous thromboembolism prophylaxis: Okay to initiate chemoprophylaxis Chronic, stable, or resolving problems # Respiratory function - stable despite positive fluid balance -Monitor for signs of CHF; consider Lasix as needed # Neurological - no evidence of compromise at this time # Infectious disease status - no signs of infection at this time # GI prophylaxis: Pantoprazole IV discontinued # Goals of care, expected hospital duration 1-2 days, discharge planning: Pending mobilization out of bed, and stability of hematocrit - Admitted to inpatient status with expectation of care greater than 48 hours - Patient is full code Pain Evaluation: Adequate Pain Control GI Prophylaxis: Not indicated VTE Prophylaxis: SCDs VTE Mechanical Devices: Intermittant Pneumatic CD Resuscitation Status: CPR: Attempt Resuscitation Time spent 35 minutes spent in patient assessment, counseling patient and family, and review of data with consultants Juan Jose Poe MD Nov 17, 2016 15:05
--- NOTE | 2016-11-17 16:48 | NUR ---
P: Alteration in I: Pt VSS. Soares patent and draining pink urine with very little clots. CBI dc'd. Status changed to PCC without tele. Pt up to BSC with stand by assist and had two large formed stools. Room air with sats stable. RIJ TLC patent and flushes well. NSR. Taking diet and fluids well. Family at bedside and pt and family are updated on pt's condition and plan of care. E: Stable S: Alert and Oriented. Uses call light appropriately. Frequent rounding.
[2016-11-18 00:11] VITALS: BP 158/60; PULSE 70; RESP 22; O2SAT 100
[2016-11-18] MEDS: Lactated Ringer's 1,000 ML IV SCH ×4 (00:58→21:46)
[2016-11-18 03:26] LABS: Mean Corpuscular Hemoglobin 30.4 pg (27.0-35.0); Mean Corpuscular Volume 87.8 fL (81-100)
--- NOTE | 2016-11-18 05:58 | NUR ---
Sleep Patient requested to sleep as much as possible tonight. Patients room darkened and nursing cares cluster.
[2016-11-18 06:04] VITALS: BP 139/68; PULSE 62; RESP 20; O2SAT 95
[2016-11-18] MEDS: Pantoprazole 40 mg ER24 Tablet PO SCH (06:09)
[2016-11-18] MEDS: Norepineph 8,000 mCg/250 mL NS 8,000 MCG in IV Premix 1 EACH IV SCH (07:08)
[2016-11-18 07:29] VITALS: BP 148/74; PULSE 62; RESP 16; O2SAT 92
[2016-11-18] MEDS: levoFLOXacin 500 mg Tablet PO SCH (07:45)
[2016-11-18] MEDS: MeTOProlol XL 50 mg ER24 Tablet PO SCH ×2 (07:45→21:22)
[2016-11-18] MEDS: Insulin LISPRO 300 Unit/3 mL Inj SUBQ SCH ×4 (07:48→21:33)
[2016-11-18] MEDS: Insulin GLARgine 100 Unit/mL Syringe SUBQ SCH (07:50)
[2016-11-18] MEDS: Potassium Chloride 20 mEq SR Tablet PO SCH (07:54)
[2016-11-18] MEDS ORDERED: Insulin GLARgine 100 Unit/mL Syringe SUBQ SCH (08:30)
--- NOTE | 2016-11-18 11:22 | PCM.PNSURG ---
Subjective Date of Service: Nov 18, 2016 Date of Service: Nov 18, 2016 Visit Information: Reason for Visit Urinary Retention Surgery/Surgery Date Post-Op Day # 3 Date of Admission: Nov 15, 2016 at 16:58 Hospital Day # 4 Subjective: Mr Patel was on the commode this morning. He states he has no pain from the catheter or pain. Postop General: No Complaints Gastrointestinal: Tolerating Oral Feedings Objective Vital Sign- Last 8 Hours Date Time Temp Pulse Resp B/P Pulse Ox O2 Delivery O2 Flow Rate FiO2 11/18/16 07:29 36.7 62 16 148/74 92 Room Air 11/18/16 06:04 36.8 62 20 139/68 95 Room Air Intake and Output- Last 8 Hour 11/18/16 Cumulative From/Thru 06:59 11/14/16 10:30 - 11/18/16 06:04 Intake Total 1614 ml 91105 ml Output Total 2600 ml 86759 ml Balance -986 ml 3109 ml Intake Oral 1614 ml 4634 ml IV Total 9275 ml Autotransfusion 1000 ml Packed Cells 700 ml Output Urine Total 2600 ml 96954 ml Estimated Blood Loss 1000 ml # Bowel Movements 3 General: Alert Catheters: 3 Way Irrigation (CBI has been d/c'd. His urine is clear in tubing.) Result Diagram: 11/18/16 0310 11/18/16 0310 Assessment & Plan Impression POD# 3, TURP Problems: Plan Continue as with the plan outlined by Dr Coffey - Pt will go home with ortega catheter to dependent drainage and f/u as outpt for voiding trial Very much appreciate medicine team's care of Mr Patel VTE Prophylaxis: SCDs Resuscitation Status: CPR: Attempt Resuscitation Tran Hudson MD Nov 18, 2016 11:22
--- NOTE | 2016-11-18 11:30 | NUR ---
Evaluation completed. Please go to "Notes" then click on "Assessments and Notes" (bottom left corner of screen). Then select appropriate discipline tab on top of screen.
--- NOTE | 2016-11-18 15:30 | NUR ---
AMBULATION/HARRISON P-Patient needs to get out of bed and ambulate. Patient has recent Hx of TURP and bleed. I- PT ambulated patient and has signed off, Nurse ambulated patient x2 = 150ft. Harrison catheter assessed for patency. E- Harrison draining pink urine 1000ml so far this shift. Patient tolerated ambulation well denies shortness of breath. LABS -Hgb 8.2, HcT 23.7 NEURO-LOC X4 CVS- No telemetry PLUM-RA, Night 2L + ox GI- BG 275 and 367 today - Harrison pink SKIN- Bottom red blanchable PAIN- Denies IV- IJ X3 PLAN- D/C home tomorrow.
[2016-11-18 16:13] VITALS: BP 136/64; PULSE 58; RESP 20; O2SAT 94
--- NOTE | 2016-11-18 18:24 | PCM.PNMED ---
Subjective Date of Service Nov 18, 2016 Subjective 71-year-old man with history of chronic systolic CHF, hypertension, type II diabetes mellitus, coronary artery disease and atrial fibrillation presents with acute blood loss anemia in hemorrhagic shock following elective TURP on Patient feels much improved today. Feels weak and concerned about ambulating on his arthritic knees. Appetite is good. Exam Vital Signs Vital Sign - Last Date Time Temp Pulse Resp B/P Pulse Ox O2 Delivery O2 Flow Rate FiO2 11/18/16 16:13 36.8 58 20 136/64 94 Room Air 11/18/16 00:11 4.00 Intake and Output 11/17/16 11/17/16 11/18/16 Cumulative From/Thru 14:59 22:59 06:59 11/14/16 10:30 - 11/18/16 06:04 Intake Total 375 ml 1280 ml 1614 ml 45360 ml Output Total 2700 ml 2600 ml 97497 ml Balance 375 ml -1420 ml -986 ml 3109 ml Intake Oral 1280 ml 1614 ml 4634 ml IV Total 75 ml 9275 ml Autotransfusion 1000 ml Packed Cells 300 ml 700 ml Output Urine Total 2700 ml 2600 ml 85992 ml Estimated Blood Loss 1000 ml # Bowel Movements 2 3 Exam General: Elderly man in good spirits HEENT: sclerae anicteric, oral mucosa moist Neck: no JVD Chest: Right IJ CVC, lungs clear to auscultation Cardiac: S1S2, irregular, no murmur Abdomen: BS normal, non-tender Extremities: 2+ edema of hands no pedal edema Neuro: A&O, cranial nerves symmetric, motor strength 5-/5, coordination normal IVs and Medications Medications Reviewed: Medications were reviewed in detail Lab and Diagnostics Result Diagram: 11/18/1630911/18/16309 X-Rays, CTs and MRIs PROCEDURE: X-RAY CHEST ONE VIEW, PORTABLE ([id number]) INDICATIONS: POST CENTRAL LINE IMPRESSION: No pneumothorax after central line placement. The exact positioning of the central line tip is uncertain as is always the case, but it overlies the general area of the superior vena cava. Dictated by: Toby Pemberton M.D. on 11/15/2016 at 16:14 . 12-lead ECG 11/15 at 14-31 hour Sinus mechanism with probable multifocal atrial pacing. Approximately [address]-T wave changes. Additional Diagnostics SURGICAL PATHOLOGY DATE COLLECTED:11/15/2016 22:31 SPECIMEN: Prostate, Chips CLINICAL HISTORY: URINARY RETENTION 1). RESECTED PROSTATE FINAL DIAGNOSIS: 1.PROSTATE TISSUE (TRANSURETHRAL RESECTION, 96.8 GRAMS): NODULAR HYPERPLASIA OF GLANDS AND STROMA, NEGATIVE FOR ATYPIA. . Assessment & Plan 71-year-old man presents with acute blood loss anemia and hemodynamic shock following prostate surgery # Hematological - Hemodynamic shock secondary to acute blood loss anemia. Received 4 units PRBC perioperatively, 1 unit PRBC on 11/16. Baseline hemoglobin was 9.5, has declined to 8.2 as of 11/18. Urine is clearing Suspect hemodilution. - Repeat CBC in a.m. - Iron supplement - Discontinue CVC # Cardiac: Hemodynamics & Rhythm - recent cardiac evaluation most consistent with chronic diastolic CHF. No evidence of acute exacerbation at this time. Patient is at moderately high risk of ischemic events. Hypertension is persistent even after volume resuscitation. No troponin elevation. Continued to require norepinephrine at 36 hours post hemorrhagic event, but now weaned off with stable blood pressure. He received Lasix 1 time with good diuresis. Body weight is 6 kg above baseline. Heart line discontinued. - Discontinue Telemetry monitoring # Lines, I/O's, fluids and electrolytes - Lactated Ringer's at 250 mL per hr initially, reduced to 100 mm/h maintenance. - Discontinue IV fluids; encourage by mouth intake - We will consider need for additional Lasix in a.m. - CVC care # Renal - concern for potential ATN due to hypotensive episode. Serum creatinine 1.29, up to 1.5 then declined to 1.39. He now seems at low risk for ATN - Encourage by mouth hydration # GI, diabetes, and nutritional status - type II diabetes mellitus usually insulin using insulin 70/30 approximately 75 units per day. Blood glucose is slightly above goal on approximately 60 units insulin per day - 4 times a day capillary blood glucose - Glucose control goals: Random less than 180, fasting less than 140, none less than 70 - Insulin as needed, divided 50-50 long-acting and nutritional/correctional - Increase insulin dosing today # Status post TURP on 11/15/15. Flushing of 3-way Soares catheter is been discontinued. Urine remains slightly pink but no significant clots or blood loss. - Management per urology quantitative consultant; - will leave Soares in place - Outpatient follow-up with Dr. Coffey on Sunday # Pain status. Pain is now well controlled # Venous thromboembolism prophylaxis: Okay to initiate chemoprophylaxis Chronic, stable, or resolving problems # Respiratory function - stable despite positive fluid balance -Monitor for signs of CHF; consider Lasix as needed # Neurological - no evidence of compromise at this time # Infectious disease status - no signs of infection at this time # GI prophylaxis: Pantoprazole IV discontinued # Goals of care, - Anticipate discharge in a.m. - Patient is full code GI Prophylaxis: Not indicated VTE Prophylaxis: SCDs VTE Mechanical Devices: Intermittant Pneumatic CD Resuscitation Status: CPR: Attempt Resuscitation Time spent 35 minutes Juan Jose Poe MD Nov 18, 2016 18:24
[2016-11-18 19:28] VITALS: BP 138/55; PULSE 66; RESP 12; O2SAT 95
[2016-11-18 23:58] VITALS: BP_SYST 106; BP_SYST 122; BP_DIAS 62; BP_DIAS 67; PULSE 62; RESP 13; O2SAT 94
[2016-11-19 04:13] LABS: Mean Corpuscular Hemoglobin 29.8 pg (27.0-35.0); Mean Corpuscular Volume 92.4 fL (81-100)
--- NOTE | 2016-11-19 04:49 | NUR ---
Soares Patient is resting comfortably in bed without needs. Patient Soares is slightly more blood this evening. Small clots noted in the tubing. Soares irrigated without complication and draining to gravity.
[2016-11-19 04:50] VITALS: BP 145/61; PULSE 65; RESP 16; O2SAT 96
[2016-11-19] MEDS: Pantoprazole 40 mg ER24 Tablet PO SCH (06:14)
[2016-11-19 07:34] VITALS: BP 158/65; PULSE 64; RESP 20; O2SAT 97
[2016-11-19] MEDS: Insulin LISPRO 300 Unit/3 mL Inj SUBQ SCH (08:00)
--- NOTE | 2016-11-19 08:00 | NUR ---
[facility]
[2016-11-19] MEDS: levoFLOXacin 500 mg Tablet PO SCH (08:04)
[2016-11-19] MEDS: MeTOProlol XL 50 mg ER24 Tablet PO SCH (08:10)
[2016-11-19] MEDS ORDERED: FERR236T PO (10:48)
--- NOTE | 2016-11-19 10:51 | PCM.DIMED ---
Discharge Instructions Date of Service Nov 19, 2016 Dates of Hospitalization Nov 15, 2016 at 16:58 Discharge Diagnosis Discharge Diagnosis Benign prostatic hypertrophy; acute blood loss anemia; hemorrhagic shock; chronic kidney disease Medication Instructions We suggest that you take an iron supplement 3 times per day. This is available [id number], but a prescription was sent to your [facility]. If you find this gives you constipation or abdominal discomfort then you may discontinue this, and rely on a balanced diet for iron intake. Diet No restrictions Activity Limited until seen by PCP (avoid strenuous exercise until advised by Dr. Coffey) Patient Instructions You will keep your Soares catheter in until advised by Dr. Coffey. You should expect to see red tinged urine and some clots. This is not a concern unless it is increasing or you experience pain, and which case you should contact Dr. Coffey Follow-up Provider: Chata Coffey MD Follow-up with PCP in: Other (call Dr. Coffey's office on Sunday morning) Provider: Urvashi Monge DO Follow-up in: 4 weeks Juan Jose Poe MD Nov 19, 2016 10:51
--- NOTE | 2016-11-19 11:00 | NUR ---
DISCHARGE Pt A&OX3; denies pain, up ambulating well with aid of walker. Soares in place; instructions reviewed for home care, questions answered. Discharge documentation reviewed in full with pt, his spouse & daughter. Post discharge MD appointment information reviewed also. All belongings with pt including cell phone. To waiting vehicle via w/c, accompanied by RN, TRANSPLANT WORKER, family.
--- NOTE | 2016-11-19 12:38 | NUR ---
Social Work: Discharge D: Pt discussed in am rounds. Pt is medically stable for discharge home. MD identifies no home needs. Pt was able to complete PT evaluation and was cleared to d/c home. Per Care Trends pt was ambulating I during admission. ONCOLOGY NURSE met with pt at bedside to reassess and discuss any unmet needs. Pt denies any home needs and states his family will transport him home. A: Pt who is I at baseline. P: Pt to discharge home via POV. KAYLEIGH Vazquez
--- NOTE | 2016-11-29 17:19 | PCM.DC.MED ---
Discharge Summary Date of Service Nov 29, 2016 Dates of Hospitalization Date of Hospital Admission Nov 15, 2016 at 16:58 Date of Discharge: Nov 19, 2016 Providers: Admitting Physician: Chata Coffey MD Primary Care Physician: Urvashi Monge DO Attending Physician: Chata Coffey MD Diagnosis at Time of Discharge Diagnosis at Time of Discharge Benign prostatic hypertrophy; acute blood loss anemia; hemorrhagic shock; chronic kidney disease Procedures XRay, CTs & MRIs PROCEDURE: X-RAY CHEST ONE VIEW, PORTABLE ([id number]) INDICATIONS: POST CENTRAL LINE IMPRESSION: No pneumothorax after central line placement. The exact positioning of the central line tip is uncertain as is always the case, but it overlies the general area of the superior vena cava. Dictated by: Toby Pemberton M.D. on 11/15/2016 at 16:14 . ECG 12 Lead 11/15 at 14-31 hour Sinus mechanism with probable multifocal atrial pacing. Approximately [address]-T wave changes. Other Diagnostics SURGICAL PATHOLOGY DATE COLLECTED:11/15/2016 22:31 SPECIMEN: Prostate, Chips CLINICAL HISTORY: URINARY RETENTION 1). RESECTED PROSTATE FINAL DIAGNOSIS: 1.PROSTATE TISSUE (TRANSURETHRAL RESECTION, 96.8 GRAMS): NODULAR HYPERPLASIA OF GLANDS AND STROMA, NEGATIVE FOR ATYPIA. . Brief History History of Present Illness (per admission note): Patient states that he was in usual state of health presenting for elective TURP surgery today. He has no history of bleeding diathesis. During surgery today, He experienced significant blood loss, estimated at approximately 1000 mL. Anesthesiologist reported labile blood pressures with significant hypotension systolic blood pressure in the 40s by art line, although variable readings up to 120 obtained from arm cuffs. He is transferred to direct admission to the CCU for the management of hemodynamic shock. When interviewed approximately 4 hours after surgery, the patient's only complaint is bladder discomfort. Currently has three-way Soares and bladder irrigation. He denies chest pain, dyspnea, nausea vomiting, abdominal pain, headache, or problems with his extremities. . Hospital Course # Hematological - acute blood loss anemia. Received 6 units PRBC. Baseline hemoglobin was 9.5, declined to 7.2, the. 8.2 where it remained stable for 2 days prior to discharge.. - Oral iron supplement prescribed # Cardiac: Acute hypovolemic shock - blood pressure stabilized after appropriate volume replacement. Recent cardiac evaluation most consistent with chronic diastolic CHF. No evidence of acute exacerbation at this time. Body weight is 6 kg above baseline. He received Lasix 1 time with good diuresis. No dysrhythmia noted. No significant pulmonary edema. # Renal - AK I with baseline CK D stage II. Concern for potential ATN due to hypotensive episode. He had history of ROBINA in September 2016. Serum creatinine 1.29, up to 1.5 then declined to 1.19. # GI, diabetes, and nutritional status - type II diabetes mellitus usually insulin using insulin 70/30 approximately 75 units per day. Blood glucose was managed with basal bolus insulin while inpatient. He was returned to his usual diabetes care at time of discharge. # Status post TURP on 11/15/15. Flushing of 3-way Soares catheter is been discontinued. Urine remains slightly pink but no significant clots or blood loss. - Surgical pathology noted above - will leave Soares in place at time of discharge - Outpatient follow-up with Dr. Coffey on Monday 11/20 # Pain status. Acute pain due to bladder spasms. Pain is now well controlled on no meds. # Venous thromboembolism prophylaxis: After hemostasis was achieved to this return to appropriate chemoprophylaxis. Exam Exam General: Elderly man, alert in no acute distress HEENT: sclerae anicteric, oral mucosa moist Neck: no apparent JVD, supple Chest: clear to auscultation Cardiac: S1S2, regular, no murmur Abdomen: BS normal, non-tender, Soares in place Extremities: No significant pitting edema Neuro: A&O, cranial nerves symmetric, motor strength 5/5, coordination normal Test 11/15/16 15:20 11/15/16 16:04 11/16/16 04:25 11/19/16 03:41 Neutrophils (%) (Auto) 73.9% (40-74) Lymphocytes (%) (Auto) 16.0% (14-46) Monocytes (%) (Auto) 8.2% (4-12) Eosinophils (%) (Auto) 1.2% (0-5) Basophils (%) (Auto) 0.3% (0-3) Prothrombin Time 13.6sec (8.1-12.5) Prothromb Time International Ratio 1.26ratio Activated Partial Thromboplast Time 29.0sec (22.8-33.0) Hemoglobin A1c 6.3% (4.8-5.6) Total Bilirubin 1.0mg/dL (0.0-1.2) Aspartate Amino Transf (AST/SGOT) 12U/L (0-50) Alanine Aminotransferase (ALT/SGPT) 11U/L (0-44) Alkaline Phosphatase 45U/L (25-160) Pro-B-Type Natriuretic Peptide 1228pg/mL (0-376) Total Protein 3.9g/dL (6.4-8.4) Albumin 2.2g/dL (3.4-5.0) Lactic Acid Level 1.8mmol/L (0.4-2.0) Phosphorus Level 4.0mg/dL (2.5-4.9) Magnesium Level 1.8mg/dL (1.6-2.6) Troponin T 0.010ug/L (0.0-0.011) White Blood Count 7.3th/mm3 (3.8-10.1) Red Blood Count 2.75mil/mm3 (4.40-5.80) Hemoglobin 8.2g/dL (13.8-17.2) Hematocrit 25.4% (41.0-50.0) Mean Corpuscular Volume 92.4fL (81-100) Mean Corpuscular Hemoglobin 29.8pg (27.0-35.0) Mean Corpuscular Hemoglobin Concent 32.3% (32.0-37.0) Red Cell Distribution Width 14.6% (12.3-15.4) Platelet Count 123bil/L (150-400) Sodium Level 139mEq/L (134-144) Potassium Level 3.9mEq/L (3.5-5.2) Chloride Level 99mEq/L (97-108) Carbon Dioxide Level 30mmol/L (18-29) Blood Urea Nitrogen 18mg/dL (8-27) Creatinine 1.21mg/dL (0.76-1.27) Estimat Glomerular Filtration Rate 62mL/min (>59) Glucose Level 157mg/dL (60-99) Calcium Level 8.5mg/dL (8.5-10.1) Discharge Medications Discharge Medications Amlodipine (Amlodipine) 10 Mg Tablet 10 MG PO DAILY (Reported) Atorvastatin (Lipitor) 40 Mg Tablet 40 MG PO DAILY (Reported) Ferrous Gluconate (Iron) 236 Mg Tablet 236 MG PO TID Prescribed by: KRISTAN MEJIAS MD Furosemide (Furosemide) 20 Mg Tab 20 MG PO DAILY (Reported) Lisinopril (Lisinopril) 5 Mg Tablet 5 MG PO DAILY (Reported) Metoprolol Succinate ER (Toprol XL) 50 Mg Tablet 50 MG PO BID (Reported) Potassium Chloride ER (Potassium Chloride ER) 10 Meq Tablet 20 MEQ PO DAILY ( Reported) TAKE WITH FOOD Tamsulosin (Flomax) 0.4 Mg Capsule 0.4 MG PO DAILY (Reported) As needed Albuterol HFA (Proair HFA) 8.5 Gm Hfa.aer.ad 2 PUFFS INHALATION Q4H PRN PRN For Shortness of Breath (Reported) Insulin Human Isophan/Regular (HUMulin 70/30 U100 Insulin Vial) 100 Unit/Ml Ml 1 UNIT SUBQ BID PRN PRN blood glucose (Reported) Additional med instructions We suggest that you take an iron supplement 3 times per day. This is available [id number], but a prescription was [facility]. If you find this gives you constipation or abdominal discomfort then you may discontinue this, and rely on a balanced diet for iron intake. Followup Plan Disposition: Home Discharge Diet: No restrictions Discharge Activity: Limited until seen by PCP (avoid strenuous exercise until advised by Dr. Coffey) Patient Instructions You will keep your Soares catheter in until advised by Dr. Coffey. You should expect to see red tinged urine and some clots. This is not a concern unless it is increasing or you experience pain, and which case you should contact Dr. Coffey Follow-up Provider: Chata Coffey MD Follow-up with PCP in: Other (call Dr. Coffey's office on Sunday morning) Provider: Urvashi Monge DO Follow-up in: 4 weeks Time spent 35 minutes copies to: Chata Coffey MD; Urvashi Monge Jeffrey W MD Nov 29, 2016 17:19
== END 2016-11-19 11:17 | disposition home or self-care (01) | DRG 713 ==
LOC: SAS 09:14 → PCC 16:58 → CCU 17:08 → PCC 11-17 08:30
PROVIDERS: ADMIT Urology; ATTEND Urology
PROC: 30233N1 Transfusion of Nonautologous Red Blood Cells into Peripheral Vein, Percutaneous Approach (ICD-10-PCS; 2016-11-15)
PROC: 0VB08ZZ Excision of Prostate, Via Natural or Artificial Opening Endoscopic (ICD-10-PCS; principal; 2016-11-15 11:00)
PROC: 30233N1 Transfusion of Nonautologous Red Blood Cells into Peripheral Vein, Percutaneous Approach (ICD-10-PCS; 2016-11-16)
PROC: 30233N1 Transfusion of Nonautologous Red Blood Cells into Peripheral Vein, Percutaneous Approach (ICD-10-PCS; 2016-11-17)
DX: N40.1 Benign prostatic hyperplasia with lower urinary tract symptoms (principal); T81.19XA Other postprocedural shock, initial encounter; D62 Acute posthemorrhagic anemia; I50.22 Chronic systolic (congestive) heart failure; R33.8 Other retention of urine; E11.9 Type 2 diabetes mellitus without complications; I10 Essential (primary) hypertension; Z79.4 Long term (current) use of insulin; I48.2 Chronic atrial fibrillation